=== PATIENT | male | born 1950 | race Caucasian/White ===

== ENCOUNTER → 2022-12-12 | Outpatient (REF) | payer MEDICARE, SELFPAY ==
[2022-12-12 15:17] LABS: INR 1.73; Prothrombin Time 17.8 sec (9.0-11.6)
== END ==
LOC: LAB 13:42
DX: Z79.01 Long term (current) use of anticoagulants (principal)
CPT/HCPCS: 36415; 85610

== ENCOUNTER 2023-01-01 12:57 | Outpatient (REF) | payer MEDICARE, SELFPAY ==
[2023-01-01 14:24] LABS: INR 1.24
== END 2023-01-01 12:58 | disposition home or self-care (01) ==
LOC: LAB 12:57
DX: Z79.01 Long term (current) use of anticoagulants (principal)
CPT/HCPCS: 36415; 85610

== ENCOUNTER 2023-01-10 12:13 | Outpatient (REF) | payer MEDICARE, SELFPAY ==
[2023-01-10 12:57] LABS: INR 1.14
== END 2023-01-10 12:14 | disposition home or self-care (01) ==
LOC: LAB 12:13
DX: Z79.01 Long term (current) use of anticoagulants (principal)
CPT/HCPCS: 36415; 85610

== ENCOUNTER 2023-01-16 11:58 | Outpatient (REF) | payer MEDICARE, SELFPAY ==
[2023-01-16 13:08] LABS: Prothrombin Time 12.6 sec (9.0-11.6)
== END 2023-01-16 11:59 | disposition home or self-care (01) ==
LOC: LAB 11:58
DX: Z79.01 Long term (current) use of anticoagulants (principal)
CPT/HCPCS: 36415; 85610

== ENCOUNTER 2023-01-25 10:49 | Outpatient (REF) | payer MEDICARE, SELFPAY ==
[2023-01-25 11:37] LABS: INR 1.32; Prothrombin Time 13.8 sec (9.0-11.6)
== END 2023-01-25 10:50 | disposition home or self-care (01) ==
LOC: LAB 10:49
DX: Z79.01 Long term (current) use of anticoagulants (principal)
CPT/HCPCS: 36415; 85610

== ENCOUNTER 2023-02-01 11:16 | Outpatient (REF) | payer MEDICARE, SELFPAY ==
[2023-02-01 11:57] LABS: INR 1.86
== END 2023-02-01 11:17 | disposition home or self-care (01) ==
LOC: LAB 11:16
DX: Z79.01 Long term (current) use of anticoagulants (principal)
CPT/HCPCS: 36415; 85610

== ENCOUNTER 2023-02-15 12:26 | Outpatient (REF) | payer MEDICARE, SELFPAY ==
[2023-02-15 13:15] LABS: INR 2.05; Prothrombin Time 20.9 sec (9.0-11.6)
== END 2023-02-15 12:27 | disposition home or self-care (01) ==
LOC: LAB 12:26
DX: Z79.01 Long term (current) use of anticoagulants (principal)
CPT/HCPCS: 36415; 85610

== ENCOUNTER 2023-03-07 08:46 | Outpatient (REF) | payer MEDICARE, SELFPAY ==
[2023-03-07 09:23] LABS: INR 1.63; Prothrombin Time 16.8 sec (9.0-11.6)
== END 2023-03-07 08:47 | disposition home or self-care (01) ==
LOC: LAB 08:46
PROVIDERS: Visit Provider Internal Medicine
DX: Z79.01 Long term (current) use of anticoagulants (principal)
CPT/HCPCS: 36415; 85610

== ENCOUNTER 2023-03-19 10:10 | Outpatient (REF) | payer MEDICARE, SELFPAY ==
[2023-03-19 10:52] LABS: INR 1.63; Prothrombin Time 16.8 sec (9.0-11.6)
== END 2023-03-19 10:11 | disposition home or self-care (01) ==
LOC: LAB 10:10
PROVIDERS: Visit Provider Internal Medicine
DX: Z79.01 Long term (current) use of anticoagulants (principal)
CPT/HCPCS: 36415; 85610

== ENCOUNTER 2023-03-27 14:31 | Outpatient (REF) | payer MEDICARE, SELFPAY ==
[2023-03-27 15:00] LABS: INR 1.89; Prothrombin Time 19.3 sec (9.0-11.6)
== END 2023-03-27 14:32 | disposition home or self-care (01) ==
LOC: LAB 14:31
PROVIDERS: Visit Provider Internal Medicine
DX: Z79.01 Long term (current) use of anticoagulants (principal)
CPT/HCPCS: 36415; 85610

== ENCOUNTER 2023-04-03 09:52 | Outpatient (REF) | payer MEDICARE, SELFPAY ==
[2023-04-03 11:05] LABS: INR 2.27
== END 2023-04-03 09:53 | disposition home or self-care (01) ==
LOC: LAB 09:52
PROVIDERS: Visit Provider Internal Medicine
DX: Z79.01 Long term (current) use of anticoagulants (principal)
CPT/HCPCS: 36415; 85610

== ENCOUNTER 2023-04-10 10:19 | Emergency (ER) | payer MEDICARE, SELFPAY ==
[2023-04-10] VITALS (25 sets, daily range): BP systolic 160–220; BP diastolic 82–124; PULSE 65–89; RESP 9–19; TEMP 36.6; O2SAT 95–100; BMI 25.1
--- NOTE | 2023-04-10 10:26 | ECG_ITS ---
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
--- NOTE | 2023-04-10 10:26 | ED.CHESTPAI1 ---
HPI - Chest Pain General Chief Complaint: Chest Pain Stated Complaint: CHEST PAIN Time Seen by Provider: 04/10/23 10:23 Source: patient Mode of arrival: ambulance Limitations: no limitations History of Present Illness HPI narrative: 72-year-old male presents for chest pain. It's been there since last night and he points to the entire left side of his chest. He states it feels like a pulled muscle but he didn't do anything to injure himself. He is not short of breath and always has a slight cough and that's no different. No back pain and it doesn't seem to radiate into his neck or into his arms. It has not gone away since last night. Related Data Allergies Allergy/AdvReac Type Severity Reaction Status Date / Time No Known Drug Allergies Allergy Verified 04/10/23 10:22 Review of Systems ROS Narrative A ten point review of systems is negative except as noted above. PFSH PFS Social History Smoking status: Current every day smoker Exam Narrative Exam Narrative: Nurses note and vital signs reviewed and patient is not hypoxic. General: The patient appears well and in no apparent distress. Patient is resting comfortably on cart. Skin: Warm, dry, no pallor noted. There is no rash noted. Head: Normocephalic, atraumatic Eye: Normal conjunctiva, no drainage Ears, Nose, Mouth, and Throat: oral mucosa is moist. Nares patent. Cardiovascular: Regular Rate and Rhythm; chest wall has no bruise or rash or crepitus. Respiratory: Patient is in no distress, no accessory muscle use, lungs are clear to auscultation, no wheezing, rales or rhonchi Back: non-tender GI: no tenderness to palpation, no masses appreciated. No rebound, guarding, or rigidity noted. Musculoskeletal: The patient has no evidence of calf tenderness, no pitting edema, symmetrical pulses noted bilaterally Neurological: A&O, normal speech Psychiatric: Cooperative Constitutional Vital Signs, click to edit/add: Last Vital Signs Temp 97.8 F 04/10/23 10:22 Pulse 79 04/10/23 13:08 Resp 18 04/10/23 13:08 BP 166/89 H 04/10/23 13:25 Pulse Ox 97 04/10/23 13:25 O2 Del Method Room Air 04/10/23 10:22 Course Vital Signs Vital signs: Vital Signs Temperature 97.8 F 10/03/23 10:22 Pulse Rate 79 04/10/23 10:22 Respiratory Rate 19 04/10/23 10:22 Blood Pressure 220/124 H 04/10/23 10:22 Pulse Oximetry 99 04/10/23 10:22 Oxygen Delivery Method Room Air 04/10/23 10:22 Temperature 97.8 F 04/10/23 10:22 Pulse Rate 79 04/10/23 13:08 Respiratory Rate 18 04/10/23 13:08 Blood Pressure 166/89 H 04/10/23 13:25 Pulse Oximetry 97 04/10/23 13:25 Oxygen Delivery Method Room Air 04/10/23 10:22 MDM - Chest Pain MDM Narrative Medical decision making narrative: his workup is negative including two sets of troponin. His blood pressure was elevated and he was given 10 mg of IV hydralazine with good improvement in his blood pressure. He'll be discharged home and has an appointment with his doctor tomorrow and will have his blood pressure rechecked then. Treatment diagnosis and follow-up were discussed with the patient. Differential Diagnosis Differential diagnosis: Likely pneumothorax, unstable angina pectoris, atypical chest pain, st elevation myocardial infarction, costochondritis and chest pain Lab Data Attestation: I reviewed the patient's lab results. Labs: Lab Results 04/10/23 04/10/23 Range/Units 10:31 12:10 WBC 11.0 (4.0-11.0) 10^3/uL RBC 5.27 (4.70-6.10) 10^6/uL Hgb 16.3 (14.0-18.0) g/dL Hct 47.8 (42.0-54.0) % MCV 90.7 (80.0-94.0) fL MCH 30.9 (25.9-34.0) pg MCHC 34.1 (29.9-35.2) g/dL RDW 13.3 (11.0-15.0) % Plt Count 210 (150-450) 10^3/uL MPV 13.5 (9.5-13.5) fL Neut % (Auto) 66.0 (43.0-75.0) % Lymph % (Auto) 20.5 (20.5-60.0) % Marion % (Auto) 11.3 (1.7-12.0) % Eos % (Auto) 1.2 (0.9-7.0) % Baso % (Auto) 0.6 (0.2-2.0) % Neut # (Auto) 7.2 H (1.4-6.5) 10^3/uL Lymph # (Auto) 2.3 (1.2-3.8) 10^3/uL Marion # (Auto) 1.2 H (0.3-0.8) 10^3/uL Eos # (Auto) 0.1 (0.0-0.7) 10^3/uL Baso # (Auto) 0.1 (0.0-0.1) 10^3/uL Abs Immat Gran (auto) 0.04 H (0.00-0.03) 10^3/uL Imm/Tot Granulo (auto) 0.4 (0.0-0.5) % Sodium 137 (136-145) mmol/L Potassium 4.5 (3.5-5.1) mmol/L Chloride 103 (98-107) mmol/L Carbon Dioxide 23.8 (21.0-32.0) mmol/L Anion Gap 14.7 BUN 12.0 (7.0-18.0) mg/dL Creatinine 1.11 (0.70-1.30) mg/dL Est GFR ( Amer) >60 (>=60) Est GFR (Non-Af Amer) >60 (>=60) BUN/Creatinine Ratio 10.8 Glucose 179 H (74-106) mg/dL Calcium 9.2 (8.5-10.1) mg/dL Troponin I High Sens 13.8 15.8 (4.0-76.1) pg/mL Imaging Data Chest x-ray: Radiologist's impression: Procedure: XR chest 1V EXAM: CHEST 1 VIEW HISTORY: CP TECHNIQUE: Chest, one view. COMPARISON: None. FINDINGS: Lungs are clear. No focal consolidation, pleural effusion, or pneumothorax. Pulmonary vasculature is within normal limits. There is atherosclerosis of a tortuous thoracic aorta with normal heart size. There are degenerative spurs of the thoracic spine and mild bilateral shoulder osteoarthritis. IMPRESSION: 1. Clear lungs. No acute cardiopulmonary disease. 2. Atherosclerosis and tortuous aorta with normal heart size. Electronically authenticated by: JINA BRICENO Date: 04/10/2023 10:57 ECG Data Attestation: I personally reviewed and interpreted this ECG as follows: (EKG on my interpretation shows sinus rhythm, right bundle branch block, rate of 73.) Heart Score History: Slightly/Non-Suspicious ECG: Normal Age: >65 years Risk Factors: 1 or 2 Risk Factors Troponin: <Normal Limit Total Heart Score Recommendations & Risks:: 3 Discharge Plan Discharge Chief Complaint: Chest Pain Clinical Impression: Chest pain Patient Disposition: Home, Self-Care Time of Disposition Decision: 13:33 Condition: Good Mode of Transportation: Private Vehicle Instructions: Chest Pain (ED) Additional Instructions: blood pressure rechecked tomorrow at your appointment Stand Alone Forms: Portal Instructions Referrals: Physician,Non-Staff, MD [Primary Care Provider] - 1 week
--- NOTE | 2023-04-10 10:45 | XR_ITS ---
The [address] [address] Patient Name: JOANNA ARANGO MRN: [id number] date: 1950 Sex: M Assigned Patient Location: ER Current Patient Location: ER Accession/Order Number: [id number] Exam Date: 04/10/2023 10:38 Report Date: 04/10/2023 10:57 At the request of: MAIRA GILLESPIE Procedure: XR chest 1V EXAM: CHEST 1 VIEW HISTORY: CP TECHNIQUE: Chest, one view. COMPARISON: None. FINDINGS: Lungs are clear. No focal consolidation, pleural effusion, or pneumothorax. Pulmonary vasculature is within normal limits. There is atherosclerosis of a tortuous thoracic aorta with normal heart size. There are degenerative spurs of the thoracic spine and mild bilateral shoulder osteoarthritis. XR/XR chest 1V IMPRESSION: 1. Clear lungs. No acute cardiopulmonary disease. 2. Atherosclerosis and tortuous aorta with normal heart size. Electronically authenticated by: JINA BRICENO Date: 04/10/2023 10:57
[2023-04-10 11:06] LABS: Basophils Absolute Auto 0.1 10^3/uL (0.0-0.1); Basophils Percent Auto 0.6 % (0.2-2.0); Eosinophils Absolute Auto 0.1 10^3/uL (0.0-0.7); Eosinophils Percent Auto 1.2 % (0.9-7.0); Hematocrit 47.8 % (42.0-54.0); Hemoglobin 16.3 g/dL (14.0-18.0); Immature Granulocytes Abs Auto 0.04 10^3/uL (0.00-0.03); Immature Granulocytes Pct Auto 0.4 % (0.0-0.5); Lymphocytes Absolute Auto 2.3 10^3/uL (1.2-3.8); Lymphocytes Percent Auto 20.5 % (20.5-60.0); Mean Corpuscular HGB Conc 34.1 g/dL (29.9-35.2); Mean Corpuscular Hemoglobin 30.9 pg (25.9-34.0); Mean Corpuscular Volume 90.7 fL (80.0-94.0); Mean Platelet Volume 13.5 fL (9.5-13.5); Monocytes Absolute Auto 1.2 10^3/uL (0.3-0.8); Monocytes Percent Auto 11.3 % (1.7-12.0); Neutrophils Absolute Auto 7.2 10^3/uL (1.4-6.5); Platelet Count 210 10^3/uL (150-450); Red Blood Count 5.27 10^6/uL (4.70-6.10); Red Cell Distribution Width 13.3 % (11.0-15.0)
[2023-04-10 11:23] LABS: Anion Gap 14.7; BUN Creatinine Ratio 10.8; Calcium 9.2 mg/dL (8.5-10.1); Carbon Dioxide 23.8 mmol/L (21.0-32.0); Chloride 103 mmol/L (98-107); Estimated GFR (African America >60 (>=60); Estimated GFR (Non-African Ame >60 (>=60); Glucose 179 mg/dL (74-106); Potassium 4.5 mmol/L (3.5-5.1); Sodium 137 mmol/L (136-145); Troponin I High Sensitivity 13.8 pg/mL (4.0-76.1)
[2023-04-10 12:46] LABS: Troponin I High Sensitivity 15.8 pg/mL (4.0-76.1)
[2023-04-10] MEDS: HYDRALAZINE HCL 20 MG/ML VIAL 10 MG IVP (13:04)
== END 2023-04-10 13:48 | disposition home or self-care (01) ==
PROVIDERS: Emergency Provider Emergency Medicine
DX: R07.9 Chest pain, unspecified (principal); F17.210 Nicotine dependence, cigarettes, uncomplicated
CPT/HCPCS: 36415; 71045; 80048; 84484; 85025; 93005; 96374; 99285

== ENCOUNTER 2025-04-09 13:46 | Emergency (ER) | payer MEDICARE, SELFPAY ==
[2025-04-09 13:48] VITALS: BP 170/123; PULSE 67; O2SAT 98; BMI 27.2
--- OUTSIDE RECORDS SUMMARY | 2025-04-09 13:53 | XMS_ITS | Encounter Summary ---
Author Organization [employer] Address [id number] [address] [place] [address] Care Team Providers Care Lunchroom Food Service Supervisor Name Role Phone Kira Cheema MD Primary Care Provider [phone] Encounter Details Date Type Department Care Team (Late st Contact Info) Description 11/19/2023 Telephone [email or web address] [address] [place] [address] [place] [address] Carmelita Acevedo CMA Social History Tobacco Use Types Packs/Day Years Used Date Smoking Tobacco: Every Day Cigarettes 0.5 57.8 Started: 1966 Smokeless Tobacco: Never Alcohol Use Standard Drinks/Week Comments Yes 35 (1 standard drink = 0.6 oz pure alcohol) whiskey/bourbon- 5 drinks mixed w/water/day PHQ-2 Answer Date Recorded Total Score 0 04/24/2023 Housing Instability Answer Date Recorde d Are you worried or concerned that in the next two months you may not have stable housing that you own, rent or stay in as a part of a household? No 08/24/2022 Hunger Screening Answer Date Recorded Within the past 12 months we worried whether our food would run out before we got money to buy more. Never True 04/24/2023 Within the past 12 months th e food we bought just didn't last and we didn't have money to get more. Never True 04/24/2023 Sex and Gender Information Value Date Recorded Sex Assigned at Not on file Legal Sex Male 1:27 PM EST Gender Identity Not on file Sexual Orientation Not on file documented as of this encounter Miscellaneous Notes * Telephone Encounter - Carmelita Acevedo CMA - 11/19/2023 11:10 AM EDT Patient was called to reschedule appointment no answer lvm documented in this encounter Plan of Treatment Upcoming Encounters Date Type Department Care Team (Late st Contact Info) Description 05/01/2025 8:30 AM EDT Appointment [facility] [address] [place] [address] Bita Church MD [address] [place] [address] [place] [address] 05/01/2025 9:00 AM EDT Appointment [place] [address] [place] [address] [place] [address] [place] [address] [place] [address] 05/01/2025 9:45 AM EDT Appointment [facility] [address] [place] [address] [place] [address] [place] [address] [place] [address] 05/18/2025 1:15 PM EST Office Visit [facility] [place] [address] Kaila Piedra DO [address] [facility] [address] [place] [address] documented as of this encounter Goals Goal Patient Goal Type Associated Problems Recent Progress Patient-Stated? Author Discharge to SNF General Yes Ashley Ness, RN Note: Evaluation of progress towards goal: Discharge to SNF. Awaiting acceptance documented as of this encounter Visit Diagnoses Not on filedocumented in this encounter Additional Health Concerns Assessment Noted Time PHQ-9 Depression Total Score: 0 04/24/20 23 8:00 AM EDT documented as of this encounter Care Teams Lunchroom Food Service Supervisor Relationship Specialty Start Date End Date Kira Cheema MD [address] [facility] [place] [address] PCP - General Internal Medicine 01/24/23 documented as of this encounter
--- OUTSIDE RECORDS SUMMARY | 2025-04-09 13:53 | XMS_ITS | Clinical Summary ---
Author Organization [employer] Address [id number] [address] [place] [address] Care Team Providers Care Cooler Deliverer Name Role Phone Kira Cheema MD Primary Care Provider [phone] Allergies No known active allergies Medications atorvastatin (LIPITOR) 80 mg tabletIndication s:Atherosclerosi s of aorta,Bilateral carotid artery stenosis TAKE 1 TABLET (80 MG TOTAL) BY MOUTH IN THE MORNING 90 tablet 1 02/13/20 25 Active potassium chloride (KLOR-CON M 20) 20 MEQ CR tabletIndication s:Hypokalemia TAKE 1 AND 1/2 TABLET BY MOUTH EVERY MORNING 135 tablet 03/28/20 25 Active aspirin 81 mgIndications:PA D (peripheral artery disease) TAKE 1 TABLET (81 MG TOTAL) BY MOUTH IN THE MORNING 90 tablet 2 04/09/20 25 Active clopidogreL (PLAVIX) 75 mg tabletIndication s:PAD (peripheral artery disease) TAKE 1 TABLET (75 MG TOTAL) BY MOUTH IN THE MORNING 90 tablet 2 04/09/20 25 Active carvediloL (COREG) 12.5 mg tabletIndication s:Essential hypertension TAKE 1 TABLET (12.5 MG) BY MOUTH IN THE MORNING AND BEFORE BEDTIME 180 tablet 2 04/09/20 25 Active amLODIPine (NORVASC) 10 mg tabletIndication s:Resistant hypertension TAKE 1 TABLET (10 MG TOTAL) BY MOUTH IN THE MORNING 90 tablet 2 04/09/20 25 Active aspirin 81 mgIndications:PA D (peripheral artery disease) TAKE 1 TABLET (81 MG TOTAL) BY MOUTH IN THE MORNING 90 tablet 2 07/07/20 24 025 Discontinued carvediloL (COREG) 12.5 mg tabletIndication s:Essential hypertension TAKE 1 TABLET (12.5 MG) BY MOUTH IN THE MORNING AND BEFORE BEDTIME 180 tablet 2 07/30/19 25 025 Discontinued clopidogreL (PLAVIX) 75 mg tabletIndication s:PAD (peripheral artery disease) TAKE 1 TABLET (75 MG TOTAL) BY MOUTH IN THE MORNING 90 tablet 2 08/18/19 25 025 Discontinued amLODIPine (NORVASC) 10 mg tabletIndication s:Resistant hypertension TAKE 1 TABLET (10 MG TOTAL) BY MOUTH IN THE MORNING 90 tablet 2 08/18/19 25 025 Discontinued potassium chloride (KLOR-CON M 20) 20 MEQ CR tabletIndication s:Hypokalemia TAKE 1 AND 1/2 TABLET BY MOUTH EVERY MORNING 135 tablet 12/31/19 25 025 Discontinued Active Problems Problem Noted Date Diagnosed Date Atheroembolism of right lower extremity 07/23/19 Acute respiratory failure, u nspecified whether with hypoxia or hypercapnia 07/23/2024 Type 2 diabetes mellitus wit hout complication, without long-term current use of insulin 07/23/2024 Occlusive disease, arterial 10/29/2023 long-term (current) use of anticoagulants 2022 Pre-op evaluation 08/03/2022 Hypertension 08/03/2022 Abnormal EKG 08/03/2022 Bilateral carotid artery stenosis 07/24/2022 PAD (peripheral artery disease) 07/24/2022 Atherosclerosis of aorta 07/24/2022 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 07/24/2022 Encounters Date Type Department Care Team Description 04/08/2025 Refill [facility] [address] [place] [address] [place] [address] Kira Cheema MD PAD (peripheral artery disease); Essential hypertension; Resistant hypertension 04/08/2025 Refill [facility] [address] [place] [address] [place] [address] David Kendall DO Hypokalemia 03/25/2025 Refill [facility] [address] [place] [address] [place] [address] Katherine Laboy APRN-CNP Hypokalemia 02/12/2025 Refill [facility] Medicine [address] [place] [address] [place] [address] Katherine Laboy APRN-CNP Atherosclerosis of aorta; Bilateral carotid artery stenosis 02/05/2025 Telephone [facility] Medicine [address] [place] [address] [place] [address] Kira Cheema MD from Last 3 Months Family History Medical History Relation Name Comments No Known Problems Father Cancer Mother Anesthesia problems Neg Hx Relation Name Status Comments Father Mother Social History Tobacco Use Types Packs/Day Years Used Date Smoking Tobacco: Every Day Cigarettes 0.5 57.8 Started: 1966 Smokeless Tobacco: Never Tobacco Cessation:Ready to Q uit: Not Asked; Counseling Given: Not Answered Alcohol Use Standard Drinks/Week Comments Yes 35 (1 standard drink = 0.6 oz pure alcohol) whiskey/bourbon- 5 drinks mixed w/water/day PHQ-2 Answer Date Recorded Total Score 0 07/23/2024 Housing Instability Answer Date Recorde d Are [...] on file Sexual Orientation Not on file Last Filed Vital Signs Vital Sign Reading Time Taken Comments Blood Pressure 142/80 07/23/2024 11:00 AM EST Pulse 76 07/23/2024 11:00 AM EST Temperature 36.7 C (98.1 F) 07/23/2024 11:00 AM EST Respiratory Rate 18 04/24/2023 8:34 AM EDT Oxygen Saturation 94% 07/23/2024 11: 00 AM EST Inhaled Oxygen Concentration - - Weight 77.5 kg (170 lb 12.8 oz) 025 11:00 AM EST Height 177.8 cm (5' 10 ) 07/23/2024 11: 00 AM EST Body Mass Index 24.51 07/23/2024 11:00 AM EST Plan of Treatment Upcoming Encounters Date Type Department Care Team (Late st Contact Info) Description 05/01/2025 8:30 AM EDT Appointment [place] [address] [place] [address] Bita Church MD [address] [facility] [address] [place] [address] 05/01/2025 9:00 AM EDT Appointment [place] [address] [place] [address] Bita Church MD [address] [facility] [address] [place] [address] 05/01/2025 9:45 AM EDT Appointment [place] [address] [place] [address] Bita Church MD [address] [facility] [address] [place] [address] 05/18/2025 1:15 PM EST Office Visit [facility] [place] [address] Kaila Piedra DO [address] [facility] [address] [place] [address] Health Maintenance Due Date Last Done Comments Diabetic Ophthalmology Exam 1950 Tobacco Counseling 1950 Diabetic Foot Exam 11/10/1969 DTaP,Tdap and Td Vaccines (1 - Tdap) 11/10/1970 Zoster (Shingles) Vaccine (1 of 2) 11/10/2001 COVID-19 Vaccine (3 - 2024-2 6 season) 2025 12/15/2020, 11/24/2020 Influenza Vaccine 03/09/2025 Adult BMI Screening 07/23/2025 07/23/2024 Depression Screening 07/23/2025 07/23/2024 Fall Risk Screening 07/23/2025 07/23/2024 Medicare Annual Wellness Visit 07/23/2025 07/23/2024 , 04/24/2023 Tobacco Screening 07/23/2025 07/23/2024 Statin Use: Cardiovascular 02/12/2026 02/12/2025 Statin Use: Diabetic 02/12/2026 02/12/2025 Abdominal Aortic Aneurysm (A AA) Screen Completed 05/05/2024, 10/29/2023, 10/17/2023, Additional history exists Goals Goal Patient Goal Type Associated Problems Recent Progress Patient-Stated? Author Discharge to SNF General Yes Ashley Ness, RN Note: Evaluation of progress towards goal: Discharge to SNF. Awaiting acceptance Medical Devices Implanted Type Area Director Of Nuclear Medicine Device Identifier Shelf Expiration Date Model / Serial / Lot Graft Sft Tis 50cmx.49mm 16/8mm Hmgrd Vsc Bvn Ty I Clgn - [id number] - [id number] Implanted:Qty: 1 on 08/15/2022 by Emmanuel Leon MD at [facility] Graft N/A: Abdomen GETINGE [employer] 10/06/2026 [id number] / [id number] / [id number] Insurance MEDICARE Advance Directives Documents on File Type Date Recorded Patient Molder Helper Expl anation Living Will 08/15/2022 6:52 AM living will /poa Durable Power of Traffic Engineering Director 07/25/2022 11:48 AM POA 07/25/22 * Full Code (Latest Code Status on File) Date Activated Date Inactivated Comments 08/15/2022 10:03 PM 08/24/2022 7:45 PM Healthcare Agents on File Name Relationship Healthcare Agent Relationsde p Communication Shanthi Matter [facility] Health Care Agent [email or web address] Cooler Deliverer Relationship Specialty Start Date End Date Kira Cheema MD [address] [facility] [place] [address] PCP - General Internal Medicine 01/24/23
--- OUTSIDE RECORDS SUMMARY | 2025-04-09 13:53 | XMS_ITS | Encounter Summary ---
Author Organization [employer] Address [id number] [address] [place] [address] Care Team Providers Care Product Lister Name Role Phone Kira Cheema MD Primary Care Provider [phone] Reason for Visit * Reason Comments Med Refill Encounter Details Date Type Department Care Team (Late st Contact Info) Description 10/11/2023 Refill [facility] [address] [facility] [place] [place] [address] [place] [address] Tory Lipscomb, JAN-BLOCKERS SKIVER [address] [facility] [address] [place] [address] Atherosclerosis of aorta ([facility]); Bilateral carotid artery stenosis Social History Tobacco Use Types Packs/Day Years [...] on file documented as of this encounter Plan of Treatment Upcoming Encounters Date Type Department Care Team (Late st Contact Info) Description 05/01/2025 8:30 AM EDT Appointment [place] [address] [place] [address] Bita Church MD [address] [facility] [address] [place] [address] 05/01/2025 9:00 AM EDT Appointment [place] [address] [place] [address] Bita Church MD [address] [facility] [address] [place] [address] 05/01/2025 9:45 AM EDT Appointment [place] [address] [place] [address] [place] [address] [place] [address] [place] [address] 05/18/2025 1:15 PM EST Office Visit [facility] [address] [place] [address] Kaila Piedra DO [address] [facility] [address] [place] [address] documented as of this encounter Goals Goal Patient Goal Type Associated Problems Recent Progress Patient-Stated? Author Discharge to SNF General Yes Ashley Ness, RN Note: Evaluation of progress towards goal: Discharge to SNF. Awaiting acceptance documented as of this encounter Visit Diagnoses Diagnosis Atherosclerosis of aorta Bilateral carotid artery stenosis Occlusion and stenosis of carotid artery without mention of cerebral infarction documented in this encounter Additional Health Concerns Assessment Noted Time PHQ-9 Depression Total Score: 0 04/24/20 8:00 AM EDT documented as of this encounter Care Teams Product Lister Relationship Specialty Start Date End Date Kira Cheema MD [address] [facility] [place] [address] PCP - General Internal Medicine 01/24/23 documented as of this encounter
--- OUTSIDE RECORDS SUMMARY | 2025-04-09 13:53 | XMS_ITS | Encounter Summary ---
Author Organization [employer] Address [id number] [address] [place] [address] Care Team Providers Care Ski Patroller Name Role Phone Kira Cheema MD Primary Care Provider [phone] Encounter Details Date Type Department Care Team (Late st Contact Info) Description 05/08/2023 [facility]phone [facility] [address] [facility] [facility] [place] [address] [address] Shruthi Gunderson CMA Social History Tobacco Use Types Packs/Day [...] encounter Miscellaneous Notes * Telephone Encounter - Shruthi Gunderson CMA - 05/08/2023 1:46 PM EDT ----- Message from Kira Cheema MD sent at 05/08/2023 1:36 PM EDT ----- Abnormal result. Lung RADS 3. Probably benign groundglass opacity in the left lower lobe measuring 1.8 cm; consider follow-up chest CT in 6 month I have ordered a repeat CT from October 07, 2022. Please call and share that repeat CT is needed, if has quesitons, we can setup a tlemed call to review at anytime. * Telephone Encounter - Shruthi Gunderson CMA - 05/08/2023 1:46 PM EDT Tried to call patient but no answer so I left him a voicemail. * Telephone Encounter - Ingrid Antunez CMA - 05/08/2023 1:46 PM EDT Called patient, no answer left a message to call back * Telephone Encounter - Ingrid Antunez CMA - 05/08/2023 1:46 PM EDT Called patient, no answer left a message to call office back about results documented in this encounter Plan of Treatment Upcoming Encounters Date Type Department Care Team (Late st Contact Info) Description 05/01/2025 8:30 AM EDT Appointment [facility] [address] [place] [address] [place] [address] [place] [address] [address] [place] [address] 05/01/2025 9:00 AM EDT Appointment [facility] [address] [place] [address] [place] [address] [place] [address] 05/01/2025 9:45 AM EDT Appointment [facility] [address] [place] [address] Bita Church MD [address] [place] [address] 05/18/2025 1:15 PM EST Office Visit [facility] [address] [place] [address] [place] [address] [place] [address] documented as of this encounter Goals Goal [...] documented as of this encounter Care Teams Ski Patroller Relationship Specialty Start Date End Date Kira Cheema MD [address] [place] [address] PCP - General Internal Medicine 01/24/23 documented as of this encounter
--- OUTSIDE RECORDS SUMMARY | 2025-04-09 13:53 | XMS_ITS | Encounter Summary ---
Author Organization [facility] Address [facility]-[id number] [address] [place] [address] Care Team Providers Care Strand Buncher Fine Wire Name Role Phone Kira Cheema MD Primary Care Provider [phone] Encounter Details Date Type Department Care Team (Late st Contact Info) Description 10/19/2022 Orders Only [facility] [address] [place] [address] [place] [address] Tory Lipscomb, CLAIMS SORTER-EXPERIENTIAL THERAPIST [address] [facility] [address] [place] [address] Atherosclerosis of aorta ([facility]) (Primary Dx) Social History Tobacco Use Types Packs/Day Years Used Date Smoking Tobacco: Every Day Cigarettes 0.5 57.8 Started: 1966 Smokeless Tobacco: Never Alcohol Use Standard Drinks/Week Comments Yes 35 (1 standard drink = 0.6 oz pure alcohol) whiskey/bourbon- 5 drinks mixed w/water/day PHQ-2 Answer Date Recorded Total Score 0 08/03/2022 Housing Instability Answer Date Recorde d Are you worried or concerned that in the next two months you may not have stable housing that you own, rent or stay in as a part of a household? No 08/24/2022 Sex and Gender Information Value Date Recorded Sex Assigned at Not on file Legal Sex Male 1:27 PM EST Gender Identity Not on file Sexual Orientation Not on file COVID-19 Exposure Response Date Recorded In the last month, have you been in contact with someone who was confirmed or suspected to have Coronavirus / COVID-19? No / Unsure 10/13/2022 1:13 PM EDT documented as of this encounter Plan of Treatment Upcoming Encounters Date Type Department Care Team (Late st Contact Info) Description 05/01/2025 8:30 AM EDT Appointment [place] [address] [place] [address] [place] [address] [place] [address] [place] [address] 05/01/2025 9:00 AM EDT Appointment [place] [address] [place] [address] Bita Church MD [address] [place] [address] 05/01/2025 9:45 AM EDT Appointment [place] [address] [place] [address] Bita Church MD [address] [place] [address] 05/18/2025 1:15 PM EST Office Visit [facility] [place] [address] Kaila Piedra DO [address] [facility] [address] [place] [address] documented as of this encounter Goals Goal Patient Goal Type Associated Problems Recent Progress Patient-Stated? Author Discharge to SNF General Yes Ashley Ness, RN Note: Evaluation of progress towards goal: Discharge to SNF. Awaiting acceptance documented as of this encounter Visit Diagnoses Diagnosis Atherosclerosis of aorta- Primary documented in this encounter Additional Health Concerns Assessment Noted Time PHQ-9 Depression Total Score: 0 01/26/20 23 9:48 AM EST documented as of this encounter Care Teams Strand Buncher Fine Wire Relationship Specialty Start Date End Date Kira Cheema MD [address] [place] [address] PCP - General Internal Medicine 01/24/23 documented as of this encounter
--- OUTSIDE RECORDS SUMMARY | 2025-04-09 13:53 | XMS_ITS | Encounter Summary ---
Author Organization [employer] Sys tem Address [facility] [id number] [address] [place] [address] Care Team Providers Care Flight Coordinator Name Role Phone Kira Cheema MD Primary Care Provider [phone] Encounter Details Date Type Department Care Team (Late st Contact Info) Description 05/08/2023 [facility]phone [facility] [address] [place] [address] Shruthi Gunderson CMA Social History [...] Info) Description 05/01/2025 8:30 AM EDT Appointment [facility] [address] [place] [address] Bita Church MD [address] [place] [address] 05/01/2025 9:00 AM EDT Appointment [place] [address] [place] [address] [place] [address] [place] [address] [address] [place] [address] 05/01/2025 9:45 AM EDT Appointment [place] [address] [place] [address] Bita Church MD [address] [place] [address] 05/18/2025 1:15 PM EST Office Visit [facility] [address] [place] [address] Kaila Piedra DO [address] [place] [address] documented as of this encounter Goals Goal [...] documented as of this encounter Care Teams Flight Coordinator Relationship Specialty Start Date End Date Kira Cheema MD [address] [facility] [place] [address] PCP - General Internal Medicine 01/24/23 documented as of this encounter
--- OUTSIDE RECORDS SUMMARY | 2025-04-09 13:53 | XMS_ITS | Encounter Summary ---
Author Organization [employer] Sys tem Address [facility]-[id number] [address] [place] [address] Care Team Providers Care Pure Culture Operator Name Role Phone Kira Cheema MD Primary Care Provider [phone] Encounter Details Date Type Department Care Team (Late st Contact Info) Description 05/08/2023 Orders Only [facility] [address] [place] [address] [place] [address] Kira Cheema MD [address] [place] [address] Lung nodule (Primary Dx) Social History Tobacco Use Types [...] Info) Description 05/01/2025 8:30 AM EDT Appointment [place] [address] [place] [address] Bita Church MD [address] [facility] [address] [place] [address] 05/01/2025 9:00 AM EDT Appointment [place] [address] [place] [address] Bita Church MD [address] [facility] [address] [place] [address] 05/01/2025 9:45 AM EDT Appointment [place] [address] [place] [address] Bita Church MD [address] [facility] [address] [place] [address] 05/18/2025 1:15 PM EST Office Visit [facility] [address] [place] [address] Kaila Piedra DO [address] [facility] [address] [place] [address] documented as of this encounter Goals Goal Patient Goal Type Associated Problems Recent Progress Patient-Stated? Author Discharge to [facility] General Yes Ashley Ness, RN Note: Evaluation of progress towards goal: Discharge to SNF. Awaiting acceptance documented as of this encounter Visit Diagnoses Diagnosis Lung nodule- Primary Other diseases of lung, not elsewhere classified documented in this encounter Additional Health Concerns Assessment Noted Time PHQ-9 Depression Total Score: 0 04/24/20 8:00 AM EDT documented as of this encounter Care Teams Pure Culture Operator Relationship Specialty Start Date End Date Kira Cheema MD [address], [place] [address] PCP - General Internal Medicine 01/24/23 documented as of this encounter
--- OUTSIDE RECORDS SUMMARY | 2025-04-09 13:53 | XMS_ITS | Encounter Summary ---
Author Organization [facility] Sys tem Address [id number] [address] [place] [address] Care Team Providers Care Weigher And Mixer Name Role Phone Kira Cheema MD Primary Care Provider [phone] Reason for Visit * Reason Comments Med Refill Encounter Details Date Type Department Care Team (Late st Contact Info) Description 04/08/2025 Refill [facility] [address] [place] [address] [place] [address] David Kendall, [address] [place] [address], [facility] [address], [place] [address] Hypokalemia Social History Tobacco Use Types Packs/Day Years Used Date Smoking Tobacco: Every Day Cigarettes 0.5 57.8 Started: 1967 Smokeless Tobacco: Never Alcohol Use Standard Drinks/Week [...] Info) Description 05/01/2025 8:30 AM EDT Appointment [place] [address] [place] [address] [place] [address] [place] [address] [place] [address] 05/01/2025 9:00 AM EDT Appointment [place] [address] [place] [address] Bita Church MD [address] [facility] [address] [place] [address] 05/01/2025 9:45 AM EDT Appointment [place] [address] [place] [address] [place] [address] [place] [address] [place] [address] 05/18/2025 1:15 PM EST Office Visit [facility] [address] [place] [address] Kaila Piedra DO [address] [facility] [address] [place] [address] documented as of this encounter Goals Goal Patient Goal Type Associated Problems Recent Progress Patient-Stated? Author Discharge to SNF General Yes Ashley Ness, RN Note: Evaluation of progress towards goal: Discharge to SNF. Awaiting acceptance documented as of this encounter Visit Diagnoses Diagnosis Hypokalemia Hypopotassemia documented in this encounter Additional Health Concerns Assessment Noted Time PHQ-9 Depression Total Score: 0 07/23/19 25 10:37 AM EST documented as of this encounter Care Teams Weigher And Mixer Relationship Specialty Start Date End Date Kira Cheema MD [address] [place] [address] PCP - General Internal Medicine 01/24/23 documented as of this encounter
--- OUTSIDE RECORDS SUMMARY | 2025-04-09 13:53 | XMS_ITS | Encounter Summary ---
Author Organization [employer] Sys tem Address [facility][id number] [address] [place] [address] Care Team Providers Care Production Lead Name Role Phone Kira Cheema MD Primary Care Provider [phone] Encounter Details Date Type Department Care Team (Late st Contact Info) Description 08/07/2022 Telephone [facility] [address] [place] [address] [place] [address] Ingrid Antunez CMA Social History Tobacco Use Types Packs/Day Years Used Date Smoking Tobacco: Every Day Cigarettes 0.5 50 Smokeless Tobacco: Never Alcohol Use Standard Drinks/Week Comments Yes 5 (1 standard drink = 0.6 oz pure alcohol) whiskey/bourbon- 5- 8oz glasses a day PHQ-2 Answer Date Recorded Total Score 0 08/03/2022 Sex and Gender Information Value Date Recorded Sex Assigned at Not on file Legal Sex Male 1:27 PM EST Gender Identity Not on file Sexual Orientation Not on file COVID-19 Exposure Response Date Recorded In the last month, have you been in contact with someone who was confirmed or suspected to have Coronavirus / COVID-19? No / Unsure 08/09/2022 11:14 AM EST documented as of this encounter Miscellaneous Notes * Telephone Encounter - Ingrid Antunez CMA - 08/07/2022 12:07 PM EST ----- Message from Tory Lipscomb APRN-KP sent at 08/07/2022 10:05 AM EST ----- Potassium level low at 3.3- Rx for Potassium chloride 20 meq take one tablet daily sent to pharmacy * Telephone Encounter - Ingrid Antunez CMA - 08/07/2022 12:07 PM EST Called patient and spoke with his Niece and she said they will go to pharmacy to get it and also that he will not be able to make his appointment in Aug. His niece stated she will call back to reschedule his appointment. documented in this encounter Plan of Treatment Upcoming Encounters Date Type Department Care Team (Late st Contact Info) Description 05/01/2025 8:30 AM EDT Appointment [place] [address] [place] [address] Bita Church MD [address] [place] [address] 05/01/2025 9:00 AM EDT Appointment [place] [address] [place] [address] Bita Church MD [address] [place] [address] [place] [address] 05/01/2025 9:45 AM EDT Appointment [place] [address] [place] [address] Bita Church MD [address] [place] [address] [place] [address] 05/18/2025 1:15 PM EST Office Visit [facility] [place] [address] Kaila Piedra, DO [address] [facility] [address] [place] [address] documented as of this encounter Visit Diagnoses Not on filedocumented in this encounter Additional Health Concerns Assessment Noted Time PHQ-9 Depression Total Score: 0 08/03/19 9:48 AM EST documented as of this encounter Care Teams Production Lead Relationship Specialty Start Date End Date Kira Cheema MD [address] [facility] [place] [address] PCP - General Internal Medicine 01/24/23 documented as of this encounter
--- OUTSIDE RECORDS SUMMARY | 2025-04-09 13:53 | XMS_ITS | Encounter Summary ---
Author Organization [email or web address] Sys [employer] Address [facility]-[id number] [address] [place] [address] Care Team Providers Care Chronic Disease Epidemiologist Name Role Phone Kira Cheema MD Primary Care Provider [phone] Reason for Visit * Reason Comments Med Refill Encounter Details Date Type Department Care Team (Late st Contact Info) Description 10/07/2023 Refill [facility] [address] [facility] [place] [address] [address] [place] [address] Tory Lipscomb, JAN-TRANSPORTATION SECURITY SCREENER [address] [facility] [address] [place] [address] Essential hypertension Social History Tobacco Use Types Packs/Day Years [...] Info) Description 05/01/2025 8:30 AM EDT Appointment [place] [address] [place] [address] Bita Church MD [address] [facility] [address] [place] [address] 05/01/2025 9:00 AM EDT Appointment [place] [address] [place] [address] Bita Church MD [address] [facility] [address] [place] [address] 05/01/2025 9:45 AM EDT Appointment [place] [address] [place] [address] Bita Church MD [address] [facility] [address] [place] [address] 05/18/2025 1:15 PM EST Office Visit [facility] [address] [place] [address] Kaila Piedra DO [address] [facility] [address] [place] [address] documented as of this encounter Goals Goal Patient Goal Type Associated Problems Recent Progress Patient-Stated? Author Discharge to [facility] General Yes Ashley Ness, RN Note: Evaluation of progress towards goal: Discharge to SNF. Awaiting acceptance documented as of this encounter Visit Diagnoses Diagnosis Essential hypertension Unspecified essential hypertension documented in this encounter Additional Health Concerns Assessment Noted Time PHQ-9 Depression Total Score: 0 04/24/20 8:00 AM EDT documented as of this encounter Care Teams Chronic Disease Epidemiologist Relationship Specialty Start Date End Date Kira Cheema MD [address] [facility], [place] [address] PCP - General Internal Medicine 01/24/23 documented as of this encounter
--- OUTSIDE RECORDS SUMMARY | 2025-04-09 13:53 | XMS_ITS | Encounter Summary ---
Author Organization [facility] [employer] s tem Address [facility]-[id number] [address] [place] [address] Care Team Providers Care Data Abstractor Name Role Phone Kira Cheema MD Primary Care Provider [phone] Encounter Details Date Type Department Care Team (Late st Contact Info) Description 07/19/2022 Telephone [facility] [address] [place] [address] Carolyn Guaman CMA Social History Tobacco Use Types Packs/Day Years Used Date Smoking Tobacco: Never Assessed Sex and Gender Information Value Date Recorded Sex Assigned at Not on file Legal Sex Male 1:27 PM EST Gender Identity Not on file Sexual Orientation Not on file COVID-19 Exposure Response Date Recorded In the last month, have you been in contact with someone who was confirmed or suspected to have Coronavirus / COVID-19? Unable to assess 07/21/2022 9:40 AM EST documented as of this encounter Miscellaneous Notes * Telephone Encounter - Adelina Root CMA - 07/19/2022 3:38 PM EST Patient saw Dr Leon on 08-09-22 to discuss surgery documented in this encounter Plan of Treatment Upcoming Encounters Date Type Department Care Team (Late st Contact Info) Description 05/01/2025 8:30 AM EDT Appointment [facility] [address] [place] [address] [place] [address] [place] [address] [place] [address] 05/01/2025 9:[address] [facility] [address] [place] [address] [place] [address] [place] [address] [place] [address] 05/01/2025 9:[address] [facility] [address] [place] [address] [place] [address] [place] [address] 05/18/2025 1:15 PM EST Office Visit [facility] [address] [place] [address] [place] [address] [place] [address] documented as of this encounter Visit Diagnoses Not on filedocumented in this encounter Care Teams Data Abstractor Relationship Specialty Start Date End Date Kira Cheema MD 605 [facility] [place] [address] PCP - General Internal Medicine 01/24/23 documented as of this encounter
--- OUTSIDE RECORDS SUMMARY | 2025-04-09 13:53 | XMS_ITS | Encounter Summary ---
Author Organization [employer] Sys [employer] Address [facility] [id number] [address] [place] [address] Care Team Providers Care Arborist Name Role Phone Kira Cheema MD Primary Care Provider [phone] Reason for Visit * Reason Comments Med Refill Encounter Details Date Type Department Care Team (Late st Contact Info) Description 07/12/2023 Refill [facility] [address] [place] [address] Katherine Laboy APRN-CNP [address] [facility] [place] [address] Hypokalemia Social History Tobacco Use Types Packs/Day [...] Info) Description 05/01/2025 8:30 AM EDT Appointment [place] [address] [place] [address] Bita Church MD [address]109 [facility] [address] [place] [address] 05/01/2025 9:00 AM EDT Appointment [place] [address] [place] [address] Bita Church MD [address] [facility] [address] [place] [address] 05/01/2025 9:45 AM EDT Appointment [place] [address] [place] [address] [place] [address] [place] [address] [place] [address] 05/18/2025 1:15 PM EST Office Visit [facility] [address] [place] [address] Kaila Piedra DO [address] [facility] [address] [place] [address] documented as of this encounter Goals Goal [...] documented as of this encounter Care Teams Arborist Relationship Specialty Start Date End Date Kira Cheema MD [address] [facility], [place] [address] PCP - General Internal Medicine 01/24/23 documented as of this encounter
--- OUTSIDE RECORDS SUMMARY | 2025-04-09 13:53 | XMS_ITS | Encounter Summary ---
Author Organization [email or web address] s tem Address [facility][id number] [address] [place] [address] Care Team Providers Care Program Evaluation Consultant Name Role Phone Kira Cheema MD Primary Care Provider [phone] Encounter Details Date Type Department Care Team (Late st Contact Info) Description 07/21/2022 Telephone [facility] [address] [place] [phone] Carolyn Guaman CMA Social History Tobacco Use [...] have Coronavirus / COVID-19? No / Unsure 07/24/2022 8:49 AM EST documented as of this encounter Plan of Treatment Upcoming Encounters Date Type Department Care Team (Late st Contact Info) Description 05/01/2025 8:30 AM EDT Appointment [facility] [address] [place] [address] Bita Church MD [address] [place] [address] 05/01/2025 9:00 AM EDT Appointment [facility] [address] [place] [address] Bita Church MD 2109 [facility] [address] [place] [address] 05/01/2025 9:45 AM EDT Appointment [facility] [address] [place] [address] Bita Church MD 2109 [facility] [address] [place] [address] 05/18/2025 1:15 PM EST Office Visit [facility] [address] [place] [address] Kaila Piedra DO 2109 [facility] [address] [place] [address] documented as of this encounter Visit Diagnoses Not on filedocumented in this encounter Care Teams Program Evaluation Consultant Relationship Specialty Start Date End Date Kira Cheema MD [address] [place] [address] PCP - General Internal Medicine 01/24/23 documented as of this encounter
--- OUTSIDE RECORDS SUMMARY | 2025-04-09 13:53 | XMS_ITS | Encounter Summary ---
Author Organization [employer] Address [id number] [address] [place] [address] Care Team Providers Care Concrete Inspector Name Role Phone Kria Cheema MD Primary Care Provider [phone] Reason for Visit * Reason Comments Med Refill Encounter Details Date Type Department Care Team (Late st Contact Info) Description 03/25/2025 Refill [facility] [address] [place] [address] Katherine Laboy APRN-CNP [address] [place] [address] Hypokalemia Social History Tobacco Use [...] 05/01/2025 8:30 AM EDT Appointment [place] [address] [place] [address] Bita Church MD [address]109 [facility] [address] [place] [address] 05/01/2025 9:00 AM EDT Appointment [place] [address] [place] [address] Bita Church MD [address] [facility] [address] [place] [address] 05/01/2025 9:45 AM EDT Appointment [place] [address] [place] [address] [place] [address] [place] [address] [place] [address] 05/18/2025 1:15 PM EST Office Visit [facility] [address] [place] [address] Kaila Piedra DO 2109 [facility] [address] [place] [address] documented as of this encounter Goals Goal [...] documented as of this encounter Care Teams Concrete Inspector Relationship Specialty Start Date End Date Kira Cheema MD [address] [facility] [place] [id number] PCP - General Internal Medicine 01/24/23 documented as of this encounter
--- OUTSIDE RECORDS SUMMARY | 2025-04-09 13:53 | XMS_ITS | Encounter Summary ---
Author Organization [employer] Address [id number] [address] [place] [address] Care Team Providers Care Window Sash Installer Name Role Phone Kira Cheema MD Primary Care Provider [phone] Reason for Visit * Reason Comments Med Refill Encounter Details Date Type Department Care Team (Late st Contact Info) Description 04/09/2023 Refill [facility] [address] [place] [address] [address] Tory Lipscomb, JAN-ENGINEERING TECHNICAL ANALYST [address] [facility] [address] [address] [place] [address] Hypokalemia Social History Tobacco Use Types Packs/Day [...] Description 05/01/2025 8:30 AM EDT Appointment [facility] [address] [place] [address] Bita Church MD [address] [facility] [address] [place] [address] 05/01/2025 9:00 AM EDT Appointment [place] [address] [place] [address] [place] [address] [place] [address] [place] [address] 05/01/2025 9:45 AM EDT Appointment [place] [address] [place] [address] [place] [address] [place] [address] [place] [address] 05/18/2025 1:15 PM EST Office Visit [facility] [address] [place] [address] Kaila Piedra DO [address] [facility] [address] [place] [address] documented as of this encounter Goals Goal Patient Goal Type Associated Problems Recent Progress Patient-Stated? Author Discharge to SNF General Yes Ashley Ness, RN Note: Evaluation of progress towards goal: Discharge to SNF. Awaiting acceptance documented as of this encounter Visit Diagnoses Diagnosis Hypokalemia Hypopotassemia documented in this encounter Additional Health Concerns Assessment Noted Time PHQ-9 Depression Total Score: 0 08/03/19 23 9:48 AM EST documented as of this encounter Care Teams Window Sash Installer Relationship Specialty Start Date End Date Kira Cheema MD [address] [place] [address] PCP - General Internal Medicine 01/24/23 documented as of this encounter
--- OUTSIDE RECORDS SUMMARY | 2025-04-09 13:53 | XMS_ITS | Encounter Summary ---
Author Organization [employer] Address [facility] [id number] [address] [place] [address] Care Team Providers Care Travel Ot Name Role Phone Kira Cheema MD Primary Care Provider [phone] Encounter Details Date Type Department Care Team (Late st Contact Info) Description 04/20/2023 [facility]phone [facility] [address] [place] [address] [place] [address] Carmelita Acevedo CMA Social History [...] Telephone Encounter - Carmelita Acevedo CMA - 04/20/2023 4:12 PM EDT ----- Message from BELÉN Zeng sent at 04/20/2023 11:00 AM EDT ----- This patient is following with [facility], and they are managing coumadin, correct? * Telephone Encounter - Carmelita Acevedo CMA - 04/20/2023 4:12 PM EDT Patient was called to verify if [facility] was handling coumadin levels. No answer and unable to lvm although patient will be in provider office this coming week to establish care. * Telephone Encounter - Carmelita Acevedo CMA - 04/20/2023 4:12 PM EDT ----- Message from BELÉN Zeng sent at 04/20/2023 11:00 AM EDT ----- This patient is following with [facility], and they are managing coumadin, correct? documented in this encounter Plan of Treatment Upcoming Encounters Date Type Department Care Team (Late st Contact Info) Description 05/01/2025 8:30 AM EDT Appointment [facility] [address] [place] [address] Bita Church MD [address] [place] [address] 05/01/2025 9:00 AM EDT Appointment [facility] [address] [facility] [place] [address] Bita Church MD [address] [facility] [address] [place] [address] 05/01/2025 9:45 AM EDT Appointment [facility] [address] [place] [address] Bita Church MD [address] [facility] [address] [place] [address] 05/18/2025 1:15 PM EST Office Visit [facility] [address] [place] [address] Kaila Piedra DO [address] [facility] [address] [place] [address] documented as of this encounter Goals Goal [...] documented as of this encounter Care Teams Travel Ot Relationship Specialty Start Date End Date Kira Cheema MD [address] [place] [address] PCP - General Internal Medicine 01/24/23 documented as of this encounter
--- OUTSIDE RECORDS SUMMARY | 2025-04-09 13:54 | XMS_ITS | Encounter Summary ---
Author Organization [employer] Address [id number] [address] [place] [address] Care Team Providers Care Database Developer Name Role Phone Kira Cheema MD Primary Care Provider [phone] Encounter Details Date Type Department Care Team (Late st Contact Info) Description 10/25/2022 Orders Only [facility] [address] [place] [address] Malia Hernandez RN Mixed hyperlipidemia (Primary Dx) Social History Tobacco Use Types [...] Info) Description 05/01/2025 8:30 AM EDT Appointment [facility] [address] [place] [address] [place] [address] [place] [address] [place] [address] 05/01/2025 9:00 AM EDT Appointment [facility] [address] [place] [address] Bita Church MD [address] [place] [address] [place] [address] 05/01/2025 9:45 AM EDT Appointment [place] [address] [facility] [place] [address] [place] [address] [place] [address] [address] 05/18/2025 1:15 PM EST Office Visit [facility] [address] [place] [address] Kaila Piedra DO [address] [facility] [address] [address] documented as of this encounter Goals Goal Patient Goal Type Associated Problems Recent Progress Patient-Stated? Author Discharge to SNF General Yes Ashley Ness, RN Note: Evaluation of progress towards goal: Discharge to SNF. Awaiting acceptance documented as of this encounter Visit Diagnoses Diagnosis Mixed hyperlipidemia- Primary documented in this encounter Additional Health Concerns Assessment Noted Time PHQ-9 Depression Total Score: 0 08/03/19 23 9:48 AM EST documented as of this encounter Care Teams Database Developer Relationship Specialty Start Date End Date Kira Cheema MD [address] [facility] [place] [address] PCP - General Internal Medicine 01/24/23 documented as of this encounter
--- OUTSIDE RECORDS SUMMARY | 2025-04-09 13:54 | XMS_ITS | Encounter Summary ---
Author Organization [employer] Address [facility] [place][id number] [address] [place] [address] Care Team Providers Care Registered Medical Assistant Name Role Phone Kira Cheema MD Primary Care Provider [phone] Encounter Details Date Type Department Care Team (Late st Contact Info) Description 10/24/2022 Orders Only [facility] [address] [place] [address] Erica Odell MA Hypertension, unspecified type Social History Tobacco Use Types Packs/Day Years [...] Info) Description 05/01/2025 8:30 AM EDT Appointment [facility] [address] [place] [address] Bita Church MD [address] [facility] [address] [place] [address] 05/01/2025 9:00 AM EDT Appointment [facility] [address] [place] [address] [place] [address] [place] [address] [place] [address] 05/01/2025 9:45 AM EDT Appointment [facility] [address] [place] [address] [place] [address] [place] [address] [place] [address] 05/18/2025 1:15 PM EST Office Visit [facility] [address] [place] [address] Kaila Piedra DO [address] [facility] [address] [place] [address] documented as of this encounter Goals Goal Patient Goal Type Associated Problems Recent Progress Patient-Stated? Author Discharge to SNF General Yes Ashley Ness, RN Note: Evaluation of progress towards goal: Discharge to SNF. Awaiting acceptance documented as of this encounter Procedures Procedure Name Priority Date/Time Associated Diagnosis Comments LIPID PROFILE Routine 10/20/2022 Hypertension, unspecified type documented in this encounter Results * Lipid profile (10/20/2022) External Cholesterol 141 [facility] External Cholesterol:Hdl 2.5 [facility] External Hdl Cholesterol 57 [facility] External Ldl (Calc) 84.8 [facility] External Triglycerides 96 [facility] External Very Low Lipoprotein 19.2 [facility] 10/20/2022 us Vijay Benitez MD LAB BLOOD ORDERABLES Final Re sult [facility] documented in this encounter Visit Diagnoses Diagnosis Hypertension, unspecified type documented in this encounter Additional Health Concerns Assessment Noted Time PHQ-9 Depression Total Score: 0 08/03/19 9:48 AM EST documented as of this encounter Care Teams Registered Medical Assistant Relationship Specialty Start Date End Date Kira Cheema MD [address] [facility] [place] [address] PCP - General Internal Medicine 01/24/23 documented as of this encounter
--- OUTSIDE RECORDS SUMMARY | 2025-04-09 13:54 | XMS_ITS | Encounter Summary ---
Author Organization [employer] Address [facility] [id number] [address] [place] [address] Care Team Providers Care Carpet Floor Layer Apprentice Name Role Phone Kira Cheema MD Primary Care Provider [phone] Reason for Visit * Reason Comments Med Refill Encounter Details Date Type Department Care Team (Late st Contact Info) Description 04/08/2025 Refill [facility] [address] [place] [address] [place] [address] Kira Cheema MD [address] [place] [address] PAD (peripheral artery disease); Essential hypertension; Resistant hypertension Social History Tobacco Use Types Packs/Day [...] Info) Description 05/01/2025 8:30 AM EDT Appointment [place] [address] [place] [address] Bita Church MD [address] [facility] [address] [place] [address] 05/01/2025 9:00 AM EDT Appointment [place] [address] [place] [address] Bita Church MD [address] [facility] [address] [place] [address] 05/01/2025 9:45 AM EDT Appointment [place] [address] [place] [address] [place] [address] [place] [address] [place] [address] 05/18/2025 1:15 PM EST Office Visit [facility] [address] [place] [address] Kaila Piedra DO [address] [facility] [address] [place] [address] documented as of this encounter Goals Goal Patient Goal Type Associated Problems Recent Progress Patient-Stated? Author Discharge to SNF General Yes Ashley Ness, RN Note: Evaluation of progress towards goal: Discharge to SNF. Awaiting acceptance documented as of this encounter Visit Diagnoses Diagnosis PAD (peripheral artery disease) Unspecified peripheral vascular disease Essential hypertension Unspecified essential hypertension Resistant hypertension documented in this encounter Additional Health Concerns Assessment Noted Time PHQ-9 Depression Total Score: 0 07/23/19 25 10:37 AM EST documented as of this encounter Care Teams Carpet Floor Layer Apprentice Relationship Specialty Start Date End Date Kira Cheema MD [address] [place] [address] PCP - General Internal Medicine 01/24/23 documented as of this encounter
--- OUTSIDE RECORDS SUMMARY | 2025-04-09 13:54 | XMS_ITS | Encounter Summary ---
Author Organization [employer] Address [id number] [address] [place] [address] Care Team Providers Care Food Service Clerk Name Role Phone Kira Cheema MD Primary Care Provider [phone] Encounter Details Date Type Department Care Team (Late st Contact Info) Description 11/03/2022 [facility]phone [facility] [address] [place] [address] [address] Shruthi Gunderson CMA Social History [...] PM EDT documented as of this encounter Miscellaneous Notes * Telephone Encounter - Shruthi Gunderson CMA - 11/03/2022 12:07 PM EDT Home Health is there working with patient. She said he has taking a little decline today. Patient stated not feeling well on Sunday. He states being sick to his stomach and little cough. Fever today 101.4 but BP was 160/80. Wound site is looking good. [facility] was calling to inform us. documented in this encounter Plan of Treatment Upcoming Encounters Date Type Department Care Team (Late st Contact Info) Description 05/01/2025 8:30 AM EDT Appointment [place] [address] [place] [address] Bita Church MD [address] [facility] [address] [place] [address] 05/01/2025 9:00 AM EDT Appointment [place] [address] [place] [address] Bita Church MD [facility] [address] [place] [address] 05/01/2025 9:45 AM EDT Appointment [place] [address] [place] [address] Bita Church MD [address] [facility] [address] [place] [address] 05/18/2025 1:15 PM EST Office Visit [facility] [place] [address] Kaila Piedra DO [address] [facility] [address] [place] [address] documented as of this encounter Goals Goal [...] documented as of this encounter Care Teams Food Service Clerk Relationship Specialty Start Date End Date Kira Cheema MD [address] [facility] [place] [address] PCP - General Internal Medicine 01/24/23 documented as of this encounter
--- OUTSIDE RECORDS SUMMARY | 2025-04-09 13:54 | XMS_ITS | Encounter Summary ---
Author Organization [employer] Address [id number] [address] [place] [address] Care Team Providers Care Hazmat Truck Driver Name Role Phone Kira Cheema MD Primary Care Provider [phone] Encounter Details Date Type Department Care Team (Late st Contact Info) Description 10/19/2022 [facility]phone [facility] [address] [place] [address] Tory Lipscomb, PSYCHOLOGICAL AIDE-[facility] [address] [facility] [address] [place] [address] Social History Tobacco Use Types Packs/Day Years [...] encounter Miscellaneous Notes * Telephone Encounter - Suyapa Garcia - 10/19/2022 12:54 PM EDT Abbe went to [facility] in [place] and when he went to pick up man his medications they told him that they were going to be 500.00 dollars. For the ones that were prescribed to him today. Wants to know what we can do. * Telephone Encounter - BELÉN Caballero - 10/19/2022 12:54 PM EDT Please check with the pharmacy regarding the medications and cost * Telephone Encounter - Carmelita Acevedo CMA - 10/19/2022 12:54 PM EDT Pharmacy was called, prescription patient is calling about is their xarelto. Pharmacy suggested Warfarin as an alternative, but would need to have their levels checked weekly. documented in this encounter Plan of Treatment Upcoming Encounters Date Type Department Care Team (Late st Contact Info) Description 05/01/2025 8:30 AM EDT Appointment [facility] [address] [place] [address] Bita Church MD [address] [place] [address] 05/01/2025 9:00 AM EDT Appointment [facility] [address] [place] [address] Bita Church MD [address] [place] [address] 05/01/2025 9:45 AM EDT Appointment [facility] - [facility] [address] [place] [address] Bita Church MD [address] [place] [address] 05/18/2025 1:15 PM EST Office Visit [facility] [address] [place] [address] Kaila Piedra DO [address] [place] [address] documented as of this encounter Goals Goal [...] documented as of this encounter Care Teams Hazmat Truck Driver Relationship Specialty Start Date End Date Kira Cheema MD [address] [place] [address] PCP - General Internal Medicine 01/24/23 documented as of this encounter
--- NOTE | 2025-04-09 14:09 | ED.GENADUL1 ---
HPI HPI - General Adult General Chief complaint: Alcohol Stated complaint: ETOH INTOXICATION Time Seen by Provider: 04/09/25 14:02 Source: patient Mode of arrival: ambulance Limitations: no limitations History of Present Illness HPI narrative: cc - fall Patient brought in by EMS from a local [employer] after he had apparently fallen. According to the report they gave this, the patient been drinking at the [employer] before making his way to the [employer]. Patient described falling back onto his buttocks but is not clear whether or not he struck his head or lost consciousness. He denies that this happened. He currently has no complaints. Prior medical history includes hypertension and hypercholesterolemia. He also takes both aspirin and Plavix for heart related condition -he tell me that he had open heart surgery many years ago. Related Data Home Medications ?Medication ?Instructions ?Recorded ?Confirmed amlodipine 10 mg tablet 10 mg PO QAM 04/09/25 04/09/25 aspirin 81 mg tablet,delayed 81 mg PO QAM 04/09/25 04/09/25 release atorvastatin 80 mg tablet 80 mg PO QAM 04/09/25 04/09/25 carvedilol 12.5 mg tablet 12.5 mg PO BIDWM 04/09/25 04/09/25 clopidogrel 75 mg tablet 75 mg PO QAM 04/09/25 04/09/25 potassium chloride 20 mEq 30 meq PO QAM 04/09/25 04/09/25 tablet,extended release(part/cryst) Allergies Allergy/AdvReac Type Severity Reaction Status Date / Time No Known Drug Allergies Allergy Verified 04/09/25 13:51 [facility] Social History Smoking status: Current every day smoker Exam Narrative Exam Narrative: Nurses note and vital signs reviewed and patient is not hypoxic. afebrile General: The patient appears well and in no apparent distress. Patient is resting comfortably on cart. GCS = 15. Skin: Warm, dry, no pallor noted. Head: Normocephalic, atraumatic scalp and face. Neck: Supple, trachea mid-line, no tenderness, no lymphadenopathy. Full ROM and no cervical spinal tenderness. The patient has no step-offs or crepitus noted Eyes: PERRLA, EOMI ENT: TM's clear, no hemotympanum detected, no blood in posterior oropharynx Cardiovascular: Regular Rate and Rhythm Respiratory: Patient is in no distress, no accessory muscle use, lungs are clear to auscultation, no wheezing, rales or rhonchi Chest Wall: no tenderness, no flail chest, contusion, abrasion, or signs of trauma. Back: No thoracic vertebral or lumbar vertebral tenderness to palpation. Negative straight leg raise bilaterally. No ecchymosis, abrasions, lacerations noted. Musculoskeletal: no sign of long bone fracture, no tenderness, no swelling. Pulses at femoral, DP, PT, and popiteal were 2+ bilaterally. Moves all four extremities in all modalities with 5/5 strength. GI: Normal bowel sounds, no tenderness to palpation, no masses appreciated. No rebound, guarding, or rigidity noted. Neurological: A&O x4, normal equal reimbursement analyst strength, normal finger to nose, normal speech, normal coordination, normal motor, normal sensory. Psychiatric: Cooperative Constitutional Vital Signs, click to edit/add: Last Vital Signs Pulse 67 04/09/25 13:48 Resp 18 04/09/25 13:48 BP 140/70 04/09/25 14:16 Pulse Ox 98 04/09/25 13:48 O2 Del Method Room Air 04/09/25 13:48 Course Vital Signs Vital signs: Vital Signs Pulse Rate 67 04/09/25 13:48 Respiratory Rate 18 04/09/25 13:48 Blood Pressure 170/123 H 04/09/25 13:48 Pulse Oximetry 98 04/09/25 13:48 Oxygen Delivery Method Room Air 04/09/25 13:48 Pulse Rate 67 04/09/25 13:48 Respiratory Rate 18 04/09/25 13:48 Blood Pressure 140/70 04/09/25 14:16 Pulse Oximetry 98 04/09/25 13:48 Oxygen Delivery Method Room Air 04/09/25 13:48 Medical Decision Making MDM Narrative Medical decision making narrative: I saw and examined the patient. He denies injury after falling at a local [employer] but he has been drinking today and he takes aspirin and Plavix. For precautionary reasons we will get CT scanning of the head and cervical spine although I do not find any external evidence of injury. Despite drinking alcohol today, neurologically he is appropriate, alert and oriented able to answer all questions appropriately and has no truncal ataxia or abnormal gait. Per radiologist report, CT scanning of the brain and CT of the cervical spine without reveal any worrisome findings such as intracranial hemorrhage, skull fracture, cervical dislocation or subluxation or fracture. We are now waiting for a sober national dedicated truck driver to come pick the patient up in order to take him home. His niece Corrina was contacted and she agreed to come pick the patient up and take him home. Once the niece arrived, he left with her Imaging Data ct brain/head, ct cervical spine: Attestation: I have reviewed the pertinent imaging results. Radiologist's impression: ITS Impressions Cervical Spine CT 04/09/25 14:47 IMPRESSION: NO CERVICAL SPINE FRACTURE Impression dictated by: Colt Ramirez Jr., D.O. 04/09/2025 3:02 PM Dictation Location: [employer] Electronically authenticated by: [id number] Y Date: 04/09/2025 15:[address] 04/09/25 14:47 IMPRESSION: NO ACUTE INTRACRANIAL ABNORMALITY. Impression dictated by: Colt Ramirez Jr., D.O. 04/09/2025 3:01 PM Dictation Location: [employer] Electronically authenticated by: [id number] Y Date: 04/09/2025 15:01 Discharge Plan Discharge Chief Complaint: Alcohol Clinical Impression: Fall Patient Disposition: Home, Self-Care Time of Disposition Decision: 15:10 Mode of Transportation: Private Vehicle Prescriptions / Home Meds: No Action atorvastatin 80 mg tablet 80 mg PO QAM carvedilol 12.5 mg tablet 12.5 mg PO BIDWM clopidogrel 75 mg tablet 75 mg PO QAM aspirin 81 mg tablet,delayed release (DR/EC) 81 mg PO QAM potassium chloride 20 mEq tablet,ER particles/crystals 30 meq PO QAM amlodipine 10 mg tablet 10 mg PO QAM Print Language: Dutch Instructions: Fall Prevention for Older Adults (ED) Referrals: Physician,Non-Staff, MD [Primary Care Provider] - 1 week Discharge Date/Time: 04/09/25 15:25
[2025-04-09 14:16] VITALS: BP 140/70
--- NOTE | 2025-04-09 14:47 | CT_ITS ---
The [address] [address] Patient Name: JOANNA ARANGO MRN: [id number] date: 1950 Sex: M Assigned Patient Location: ER Current Patient Location: ER Accession/Order Number: [id number] Exam Date: 04/09/2025 14:38 Report Date: 04/09/2025 15:02 At the request of: GILBERTO MCKEON Procedure: CT cervical spine wo con CT CERVICAL SPINE WITHOUT CONTRAST WITH 3D RECONSTRUCTIONS: CLINICAL HISTORY: fall COMPARISON: None TECHNIQUE: Spiral axial unenhanced images were obtained through the cervical spine. Sagittal, coronal and 3D volume-rendered reconstructions were also reviewed. This CT exam was performed using one or more following dose reduction techniques: Automated exposure control, adjustment of the mA and/or kV according to patient size, or use of iterative reconstruction technique. FINDINGS: No fracture. Moderate spondylosis C5-C7. Mild diffuse facet joint degenerative changes. No prevertebral soft tissue swelling. Visualized lung apices demonstrate emphysema. CT/CT cervical spine wo con IMPRESSION: NO CERVICAL SPINE FRACTURE Impression dictated by: Colt Ramirez Jr., DNicolasaONicolasa 04/09/2025 3:02 PM Dictation Location: [facility] Electronically authenticated by: [id number] Y Date: 04/09/2025 15:02
--- NOTE | 2025-04-09 14:47 | CT_ITS ---
The [address] [address] Patient Name: JOANNA ARANGO MRN: [id number] date: 1950 Sex: M Assigned Patient Location: ER Current Patient Location: ER Accession/Order Number: [id number] Exam Date: 04/09/2025 14:38 Report Date: 04/09/2025 15:01 At the request of: GILBERTO MCKEON Procedure: CT head/brain wo con CT BRAIN WITHOUT CONTRAST: CLINICAL HISTORY: fall COMPARISON: None TECHNIQUE: Contiguous axial unenhanced images were obtained through the brain. This CT exam was performed using one or more following dose reduction techniques: Automated exposure control, adjustment of the mA and/or kV according to patient size, or use of iterative reconstruction technique. FINDINGS: There is no evidence of midline shift, intra or extra-axial fluid collection, hemorrhage or CT evidence of stroke. Cortical atrophy with chronic microvascular ischemic changes. Posterior fossa appears unremarkable. Visualized intraorbital contents demonstrate no acute findings. Visualized paranasal sinuses are clear. The surrounding soft tissues are normal. CT/CT head/brain wo con IMPRESSION: NO ACUTE INTRACRANIAL ABNORMALITY. Impression dictated by: Colt Ramirez Jr., D.O. 04/09/2025 3:01 PM Dictation Location: [place] [address] Electronically authenticated by: [id number] Y Date: 04/09/2025 15:01
== END 2025-04-09 15:25 | disposition home or self-care (01) ==
PROVIDERS: Emergency Provider Emergency Medicine
DX: Z04.3 Encounter for examination and observation following other accident (principal); I10 Essential (primary) hypertension; E78.00 Pure hypercholesterolemia, unspecified; Z79.82 Long term (current) use of aspirin; Z79.84 Long term (current) use of oral hypoglycemic drugs; F17.200 Nicotine dependence, unspecified, uncomplicated; M47.812 Spondylosis without myelopathy or radiculopathy, cervical region
CPT/HCPCS: 70450; 72125; 76376; 99284